=== PATIENT | female | born 1935 | race Caucasian/White ===

== ENCOUNTER 2016-09-17 06:11 | Day surgery (SDC) | payer OTHER ==
[~2016-09-17] VITALS: Ht 157.5 cm; Wt 70.9 kg
[~2016-09-17 06:11] MED LIST: ADULT LOW DOSE81 M1 PO; ASPIRIN81 M2 PO; BENTYL20 MG PO; CARDIZEM CD,CA240 MG PO; CARVEDILOL6.25 MG PO; COREG12.5 M1 PO; COZAAR100 MG PO; CRESTOR10 MG PO; Cardizem CD,Cartia X PO; Cozaar PO; DITROPAN XL10 MG PO; ENDOCET 5-3251 EACH PO; HYDROCHLOROTHIA25 MG PO; IMDUR120 MG PO; ISOSORBIDE MON120 M1 PO; LEVO-T150 MCG PO; NEXIUM40 MG PO; OSCAL, OYSTER500 MG PO; ROCALTROL0.5 MCG PO; TESSALON200 MG PO; TIAZAC360 MG PO; TRAMADOL-ACETA1 EACH PO; ULTRACET1 TABLET PO; Vitamin D PO
[2016-09-17 06:50] VITALS: BP 169/71
[2016-09-17 13:40] VITALS: BP 152/71
[2016-09-17 14:35] VITALS: BP 146/63
[2016-09-17 15:00] VITALS: BP 177/74
== END 2016-09-17 15:45 | disposition home or self-care (01) ==
LOC: SDC 06:11
DX: J34.2 Deviated nasal septum (principal); J31.0 Chronic rhinitis; J34.89 Other specified disorders of nose and nasal sinuses; I10 Essential (primary) hypertension; K21.9 Gastro-esophageal reflux disease without esophagitis; E89.0 Postprocedural hypothyroidism; Z85.850 Personal history of malignant neoplasm of thyroid
CPT/HCPCS: J0131; J0690; J1100; J1170; J2710; J3010; J3301; J7050

== ENCOUNTER 2017-08-08 22:03 | Inpatient (IN) | payer OTHER ==
[~2017-08-08] VITALS: Ht 157.5 cm; Wt 70.7 kg
[~2017-08-08 22:03] MED LIST changes: +BACTRIM,SEPT1 TABLET PO; +IRON325 M1 PO; +LEVO-T112 MCG PO; -LEVO-T150 MCG PO; +TYLENOL EXTRA500 MG PO
[2017-08-09 07:09] VITALS: BP 140/67
[2017-08-09 12:30] LABS: HEMATOCRIT 37.5 % (36.0-46.0); MCV 90.1 FL (83-99)
[2017-08-09 12:31] LABS: HEMOGLOBIN 12.7 G/DL (11.9-15.5)
[2017-08-09 13:45] VITALS: BP 150/99
[2017-08-09 15:55] VITALS: BP 145/67
[2017-08-09 20:20] VITALS: BP 115/56
[2017-08-10 00:05] VITALS: BP 138/82
[2017-08-10 04:00] VITALS: BP 151/65
[2017-08-10 05:03] LABS: HEMATOCRIT 34.9 % (36.0-46.0); HEMOGLOBIN 11.8 G/DL (11.9-15.5); MCV 89.3 FL (83-99)
[2017-08-10 05:05] LABS: CHLORIDE 106 mEq/L (99-109); POTASSIUM 4.8 mEq/L (3.7-5.4); SODIUM 135 mEq/L (136-147)
[2017-08-10 05:07] LABS: GLUCOSE 113 mg/dL (70-99)
[2017-08-10 05:11] LABS: CREATININE 1.2 mg/dL (0.6-1.3); GFR ESTIMATE (CALCULATED) 46 mL/min/
[2017-08-10 05:12] LABS: UREA NITROGEN (BUN) 21 mg/dL (9-23)
[2017-08-10 08:15] VITALS: BP 147/63
[2017-08-10 16:01] VITALS: BP 135/58
[2017-08-10 20:12] VITALS: BP 130/63
[2017-08-11 00:05] VITALS: BP 138/72
[2017-08-11 04:01] VITALS: BP 175/76
[2017-08-11 08:00] VITALS: BP 145/68
[2017-08-11] MEDS ORDERED: SENNA PLUS TAB1 EACH PO (10:39)
[2017-08-11] MEDS ORDERED: HYDROCODON-ACE1 EAC7 PO (10:40)
[2017-08-11] MEDS ORDERED: ELIQUIS2.5 MG PO (10:40)
[2017-08-11] MEDS ORDERED: Salonpas 4% Patch TD (10:40)
[2017-08-11 11:43] VITALS: BP 119/86
== END 2017-08-11 15:15 | disposition home health service (06) | DRG 470 ==
LOC: ENRESERV 22:03 → 2SOUTH 08-09 06:42 → 3WEST 08-09 13:32 → 2SOUTH 08-09 15:34 → 3WEST 08-11 15:15
PROVIDERS: Orthopaedic Surgery
PROC: 0SR9039 Replacement of Right Hip Joint with Ceramic Synthetic Substitute, Cemented, Open Approach (ICD-10-PCS; principal; 2017-08-09)
DX: M16.11 Unilateral primary osteoarthritis, right hip (principal); I10 Essential (primary) hypertension; E11.9 Type 2 diabetes mellitus without complications; I25.10 Atherosclerotic heart disease of native coronary artery without angina pectoris; I35.0 Nonrheumatic aortic (valve) stenosis; I25.2 Old myocardial infarction; Z85.850 Personal history of malignant neoplasm of thyroid; Z68.28 Body mass index [BMI] 28.0-28.9, adult; Z90.49 Acquired absence of other specified parts of digestive tract
CPT/HCPCS: 80048; 82948; 85014; 85018; C1713; J0690; J1885; J2250; J2405; J7050; J7120; J7643; S0020